=== PATIENT | female | born 2000 | race African-American/Black ===

== ENCOUNTER 2021-02-09 10:46 | Emergency (ER) | payer MEDICAID ==
[~2021-02-09] VITALS: Ht 167.6 cm; Wt 66.0 kg
[2021-02-09 11:02] VITALS: BP 110/44
[2021-02-09] MEDS ORDERED: ERYT1OIN6 RIGHTEYE (11:39)
== END 2021-02-09 12:03 | disposition home or self-care (01) ==
LOC: ER 10:46
DX: H10.021 Other mucopurulent conjunctivitis, right eye (principal)
CPT/HCPCS: 99283